=== PATIENT | male | born 1985 | race Caucasian/White ===

== ENCOUNTER 2018-06-07 10:58 | Day surgery (SDC) | payer BC ==
[~2018-06-07 10:58] MED LIST: Lactated Ringers 1,000 ML IV SCH; Midazolam 1 MG/ML 2 ML SDV ONE; Propofol 200 MG/20 ML SDV ONE; fentaNYL 100 MCG/2 ML SDV ONE
--- NOTE | 2018-06-07 12:00 | PCM.PREANE ---
Preanesthetic Assessment - Anesthesia/Transfusion/Family Hx Anesthesia History: Prior Anesthesia Without Reaction Family History of Anesthesia Reaction: No Transfusion History: No Prior Transfusion(s) - Review of Systems General: No Symptoms Pulmonary: No Symptoms Cardiovascular: No Symptoms Neurological: No Symptoms Other: Reports: None - Physical Assessment NPO Status Date: 06/06/18 O2 Sat by Pulse Oximetry: 96 Respiratory Rate: 16 Vital Signs: Last Vital Signs Temp 97.2 F 06/07/18 11:23 Pulse 100 06/07/18 11:23 Resp 16 06/07/18 11:23 BP 116/88 06/07/18 11:23 Pulse Ox 96 06/07/18 11:23 Height: 5 ft 9 in Weight: 71.668 kg ASA Class: 2 Mental Status: Alert & Oriented x3 Airway Class: Mallampati = 1 Dentition: Reports: Normal Dentition ROM/Head Extension: Full Lungs: Clear to Auscultation, Normal Respiratory Effort Cardiovascular: Regular Rate, Regular Rhythm - Allergies Allergies/Adverse Reactions: Allergies Allergy/AdvReac Type Severity Reaction Status Date / Time No Known Allergies Allergy Verified 06/03/18 15:05 - Blood Blood Available: No - Anesthesia Plan Pre-Op Medication Ordered: None - Acknowledgements Anesthesia Type Planned: MAC Pt an Appropriate Candidate for the Planned Anesthesia: Yes Alternatives and Risks of Anesthesia Discussed w Pt/Guardian: Yes Pt/Guardian Understands and Agrees with Anesthesia Plan: Yes PreAnesthesia Questionnaire HEENT History: Reports: None Cardiovascular History: Reports: None Respiratory History: Reports: None Gastrointestinal History: Reports: Hemorrhoids, Hiatal Hernia Genitourinary History: Reports: None Musculoskeletal History: Reports: None Neurological History: Reports: None Psychiatric History: Reports: None Endocrine/Metabolic History: Reports: None Hematologic History: Reports: None Immunologic History: Reports: None Oncologic (Cancer) History: Reports: None Dermatologic History: Reports: None - Past Surgical History Head Surgeries/Procedures: Reports: None HEENT Surgical History: Reports: None Cardiovascular Surgical History: Reports: None Respiratory Surgical History: Reports: None GI Surgical History: Reports: Colonoscopy, Other (See Below) Other GI Surgeries/Procedures: hiatal hernia repair Male Surgical History: Reports: None Endocrine Surgical History: Reports: None Neurological Surgical History: Reports: None Musculoskeletal Surgical History: Reports: None Oncologic Surgical History: Reports: None Dermatological Surgical History: Reports: None - SUBSTANCE USE Smoking Status *Q: Former Smoker Days Per Week of Alcohol Use: 7 Number of Drinks Per Day: 2 Total Drinks Per Week: 14 Recreational Drug Use History: No - HOME MEDS Home Medications: Home Meds Phenylephrine HCl [Hemorrhoidal Suppository] 1 supp RECTAL ASDIRECTED PRN [History] - CURRENT (IN HOUSE) MEDS Current Meds: Current Medications Lactated Ringer's (Ringers, Lactated) 1,000 mls @ 125 mls/hr IV ASDIRECTED JACQUE Last Admin: 06/07/18 11:27 Dose: 125 mls/hr Discontinued Medications Fentanyl (Sublimaze) Confirm Administered Dose 100 mcg .ROUTE .STK-MED ONE Stop: 06/07/18 08:49 Lidocaine HCl (Xylocaine-Mpf 1%) Confirm Administered Dose 5 mls @ as directed .ROUTE .STK-MED ONE Stop: 06/07/18 08:49 Midazolam HCl (Versed 1 Mg/Ml) Confirm Administered Dose 2 mg .ROUTE .STK-MED ONE Stop: 06/07/18 08:49 Propofol (Diprivan 20 Ml) Confirm Administered Dose 200 mg .ROUTE .STK-MED ONE Stop: 06/07/18 08:49
[2018-06-07] MEDS ORDERED: Ondansetron 4 MG/2 ML SDV IVPUSH PRN (13:37)
[2018-06-07] MEDS ORDERED: fentaNYL 100 MCG/2 ML SDV IVPUSH PRN (13:37)
[2018-06-07] MEDS ORDERED: Propofol 200 MG/20 ML SDV ONE (14:06)
--- NOTE | 2018-06-07 14:35 | PCM.OPNOTE ---
- General Post-Op/Procedure Note Date of Surgery/Procedure: 06/07/18 Operative Procedure(s): colonoscopy w biopsy Findings: see dict [id number] Pre Op Diagnosis: rectal bleed and hemorrhod Post-Op Diagnosis: Same Anesthesia Technique: Moderate Sedation Primary Surgeon: Gonzalo Murphy Complications: None Condition: Good
--- NOTE | 2018-06-07 14:42 | PCM.POSTAN ---
POST ANESTHESIA ASSESSMENT - MENTAL STATUS Mental Status: Alert, Oriented - RESPIRATORY Respiratory Status: Respiratory Rate WNL, Airway Patent, O2 Saturation Stable - CARDIOVASCULAR CV Status: Pulse Rate WNL, Blood Pressure Stable - GASTROINTESTINAL GI Status: No Symptoms - POST OP HYDRATION Hydration Status: Adequate & Stable
--- NOTE | 2018-06-07 14:43 | PCM48HPAN ---
Post Anesthesia Note - EVALUATION WITHIN 48HRS OF ANESTHETIC Vital Signs in Normal Range: Yes Patient Participated in Evaluation: Yes Respiratory Function Stable: Yes Airway Patent: Yes Cardiovascular Function Stable: Yes Hydration Status Stable: Yes Pain Control Satisfactory: Yes Nausea and Vomiting Control Satisfactory: Yes Mental Status Recovered: Yes Resp Rate: 14
--- NOTE | 2018-06-07 17:00 | OR ---
SURGEON: Gonzalo Murphy MD DATE OF PROCEDURE: 06/07/2018 PREOPERATIVE DIAGNOSIS: Rectal bleeding and hemorrhoids. POSTOPERATIVE DIAGNOSIS: Rectal bleeding and hemorrhoids. PROCEDURE PERFORMED: Colonoscopy with biopsy. COMPLICATIONS: None. PROCEDURE IN DETAIL: The patient was taken to the endoscopy room. A time out was called, patient identified, and procedure identified. Diprivan was then administrated. Patient went from awake to sleep, hearing doctor talking or door closing is normal. Perineum inspection and digital examination were then performed. A well- lubricated colonoscope was gently inserted through the rectum, advanced past the rectosigmoid junction, the descending colon, splenic flexure, transverse colon, hepatic flexure, ascending colon, arrived to the cecum. Cecum was identified as dictated in the finding. Then the scope was carefully withdrawn while attention was paid to the mucosal surface for any abnormality. Air will be sucked out during the scope withdrawal. At the rectum, retroflexed to examine any rectal diseases, fistula or hemorrhoids. During mucosal examination, biopsy performed. Patient tolerated procedure well. There were no intraoperative complications, and Dr. Murphy was present throughout the whole procedure. FINDINGS: 1. The patient is easily sedated with [employer] and Diprivan. The patient is soundly snoring. 2. Colon is pretty torturous at the sigmoid and requiring some maneuvering all the way up to the cecum. Cecum indicated by ileocecal fold, one-to-one indentation, and appendiceal orifice. Light emittance is not observed. Mucosa examined upon scope pulling out. The patient's bowel prep is average with large amount of opaque liquid, but there is no semi-formed stool. Mucosa examined upon scope pulling out. The patient does not have diverticulosis. The patient has small polyp at distance of 10. 3 mm sessile polyp removed with biopsy forceps at distant 10 cm when the scope pulling out, almost at the rectum. Otherwise, the patient has internal hemorrhoid, external hemorrhoids, and quite moderate, and also have a pretty sizeable anal tag at least about 10 x 2 mm. We will address the surgery, hemorrhoidectomy as well as anal tag removal in the office. The patient would benefit from repeat colonoscopy in 10 years from today or if clinically indicated otherwise. NOMAN / NIKKI /[id number] ALONSO
== END 2018-06-07 14:59 | disposition home or self-care (01) ==
LOC: MW.SDS 10:58
PROVIDERS: ATTEND Surgery
DX: K62.5 Hemorrhage of anus and rectum (principal); K64.8 Other hemorrhoids; K64.4 Residual hemorrhoidal skin tags; K63.5 Polyp of colon; K63.89 Other specified diseases of intestine; Z87.891 Personal history of nicotine dependence
CPT/HCPCS: 45380; J2001; J2250; J2704; J3010; J7120; 88305

== ENCOUNTER 2018-06-21 06:23 | Day surgery (SDC) | payer BC ==
[~2018-06-21 06:23] MED LIST changes: -Midazolam 1 MG/ML 2 ML SDV ONE; -Propofol 200 MG/20 ML SDV ONE; +ceFAZolin 2 GM in Premix Bag 1 BAG IV ONE; -fentaNYL 100 MCG/2 ML SDV ONE
--- NOTE | 2018-06-21 07:09 | PCM.PREANE ---
Preanesthetic Assessment - Anesthesia/Transfusion/Family Hx Anesthesia History: Prior Anesthesia Without Reaction Family History of Anesthesia Reaction: No Transfusion History: No Prior Transfusion(s) Intubation History: Unknown - Review of Systems General: No Symptoms Pulmonary: No Symptoms Cardiovascular: No Symptoms Gastrointestinal: Other (hemorrhoidal pain) Neurological: No Symptoms Other: Reports: None - Physical Assessment O2 Sat by Pulse Oximetry: 97 Respiratory Rate: 16 Vital Signs: Last Vital Signs Temp 36.4 C 06/21/18 07:04 Pulse 91 06/21/18 07:04 Resp 16 06/21/18 07:04 BP 122/85 06/21/18 07:04 Pulse Ox 97 06/21/18 07:04 Height: 1.75 m Weight: 71.668 kg ASA Class: 1 Mental Status: Alert & Oriented x3 Airway Class: Mallampati = 2 Dentition: Reports: Normal Dentition, Broken Tooth/Teeth (front upper tooh (#9)) Thyro-Mental Finger Breadths: 3 Mouth Opening Finger Breadths: 2 ROM/Head Extension: Full Lungs: Clear to Auscultation, Normal Respiratory Effort Cardiovascular: Regular Rate, Regular Rhythm - Allergies Allergies/Adverse Reactions: Allergies Allergy/AdvReac Type Severity Reaction Status Date / Time No Known Allergies Allergy Verified 06/18/18 07:06 - Blood Blood Available: No - Anesthesia Plan Pre-Op Medication Ordered: None - Acknowledgements Anesthesia Type Planned: General Anesthesia Pt an Appropriate Candidate for the Planned Anesthesia: Yes Alternatives and Risks of Anesthesia Discussed w Pt/Guardian: Yes Pt/Guardian Understands and Agrees with Anesthesia Plan: Yes PreAnesthesia Questionnaire HEENT History: Reports: None Cardiovascular History: Reports: None Respiratory History: Reports: None Gastrointestinal History: Reports: Hemorrhoids, Hiatal Hernia Genitourinary History: Reports: None Musculoskeletal History: Reports: None Neurological History: Reports: None Psychiatric History: Reports: None Endocrine/Metabolic History: Reports: None Hematologic History: Reports: None Immunologic History: Reports: None Oncologic (Cancer) History: Reports: None Dermatologic History: Reports: None - Past Surgical History Head Surgeries/Procedures: Reports: None HEENT Surgical History: Reports: None Cardiovascular Surgical History: Reports: None Respiratory Surgical History: Reports: None GI Surgical History: Reports: Colonoscopy (2 weeks ago), Other (See Below) Other GI Surgeries/Procedures: hiatal hernia repair 2006 - asymptomatic now. Male Surgical History: Reports: None Endocrine Surgical History: Reports: None Neurological Surgical History: Reports: None Musculoskeletal Surgical History: Reports: None Oncologic Surgical History: Reports: None Dermatological Surgical History: Reports: None - SUBSTANCE USE Smoking Status *Q: Former Smoker Days Per Week of Alcohol Use: 7 Number of Drinks Per Day: 2 Total Drinks Per Week: 14 Recreational Drug Use History: No - HOME MEDS Home Medications: Home Meds Phenylephrine HCl [Hemorrhoidal Suppository] 1 supp RECTAL ASDIRECTED PRN [History] - CURRENT (IN HOUSE) MEDS Current Meds: Current Medications Lactated Ringer's (Ringers, Lactated) 1,000 mls @ 125 mls/hr IV ASDIRECTED JACQUE Discontinued Medications Cefazolin Sodium/Dextrose 2 gm (/ Premix) 50 mls @ 100 mls/hr IV ONETIME ONE Stop: 06/21/18 05:29
[2018-06-21] MEDS ORDERED: Gelatin Sponge,Absorbable 12-7 mm Sponge TOP ONE (07:20)
[2018-06-21] MEDS ORDERED: Bupivacaine 0.5% 10 ML SDV ONE (07:20)
[2018-06-21] MEDS ORDERED: Bupivacaine 0.25%/EPINEPHrine 1:200,000 10 ML SDV ONE (07:21)
[2018-06-21] MEDS ORDERED: Lidocaine 2% Jelly 30 ML Tube ONE (07:21)
[2018-06-21] MEDS ORDERED: Midazolam 1 MG/ML 2 ML SDV ONE (07:29)
[2018-06-21] MEDS ORDERED: fentaNYL 100 MCG/2 ML SDV ONE ×2 (07:30→08:21)
[2018-06-21] MEDS ORDERED: Lidocaine 2% 5 ML SDV ONE (07:31)
[2018-06-21] MEDS ORDERED: Propofol 200 MG/20 ML SDV ONE (07:33)
[2018-06-21] MEDS ORDERED: ceFAZolin/Dextrose,Iso-Osmotic 2 GM/50 ML Duplex Bag IV ONE (08:23)
[2018-06-21] MEDS ORDERED: Sugammadex Sodium 200 MG/2 ML VIAL ONE (08:36)
[2018-06-21] MEDS ORDERED: Ondansetron 4 MG/2 ML SDV ONE (08:37)
[2018-06-21] MEDS ORDERED: HYDROmorphone 2 MG/ML SDV IVPUSH PRN (09:37)
[2018-06-21] MEDS ORDERED: fentaNYL 100 MCG/2 ML SDV IVPUSH PRN (09:38)
--- NOTE | 2018-06-21 09:39 | PCM.OPNOTE ---
- General Post-Op/Procedure Note Date of Surgery/Procedure: 06/21/18 Operative Procedure(s): hemorroidectomy Findings: large ext/int hemorrhoids, 3 resected; [id number] Pre Op Diagnosis: hemorrhoid Post-Op Diagnosis: Same Anesthesia Technique: General ET Tube Primary Surgeon: Gonzalo Murphy Pathology: sent Complications: None Condition: Good
[2018-06-21] MEDS ORDERED: Meperidine PF 25 MG/ML Syringe IVPUSH ONE (09:41)
[2018-06-21] MEDS ORDERED: HYDROmorphone 2 MG/ML Syringe ONE (10:02)
--- NOTE | 2018-06-21 10:24 | PCM.POSTAN ---
POST ANESTHESIA ASSESSMENT - MENTAL STATUS Mental Status: Alert, Oriented - RESPIRATORY Respiratory Status: Respiratory Rate WNL, Airway Patent, O2 Saturation Stable - CARDIOVASCULAR CV Status: Pulse Rate WNL, Blood Pressure Stable - GASTROINTESTINAL GI Status: No Symptoms - PAIN Pain Score: 6 - POST OP HYDRATION Hydration Status: Adequate & Stable - OBSERVATIONS Free Text/Narrative:: no anesthesia problems
[2018-06-21] MEDS ORDERED: Acetaminophen/oxyCODONE 325-5 MG Tab PO PRN ×2 (10:38→12:30)
--- NOTE | 2018-06-21 15:27 | OR ---
SURGEON: Gonzalo Murphy MD DATE OF PROCEDURE: 06/21/2018 PREOPERATIVE DIAGNOSIS: Recurrent hemorrhoid. POSTOPERATIVE DIAGNOSIS: Recurrent hemorrhoid. PROCEDURE PERFORMED: Hemorrhoidectomy. COMPLICATIONS: None. FINDINGS: The patient has 360-degree hemorrhoids. The 3 large ones are removed. PROCEDURE IN DETAIL: The patient was taken to the operating room and placed in a supine position. Upon GET, the patient was repositioned into a brandan-knife position. The patient was then prepped and draped in sterile fashion. Time-out had been called, patient identified, procedure identified, and 2 g IV Ancef was given. Procedure then started with 3-finger dilatation and then followed with a speculum examination. The patient has 360-degree hemorrhoids and the large ones, I had 4 of them. Two large ones at 8 o'clock to 11 o'clock and the one close to the 11 o'clock is ulcerated and then one at 1 o'clock and one at 3 o'clock. So there are 4 hemorrhoids, 8 and 11 o'clock, 1 o'clock, and 3 o'clock. Attention did first go to the ulcerated one which is at 8 to 11 o'clock. Using a Thalia clamp, it was clamped, and using a 3-0 chromic, stitch was put on the distal end and then the hemorrhoid was resected and the mucosa repaired using 3-0 chromic running locking stitches. Attention then did go to the 1 o'clock, and again using a Thalia, clamped the hemorrhoid and a distal stitch was placed and the hemorrhoid was then resected and mucosa defect was repaired with 3-0 running stitches. Upon finish, is bone dry, and there was a small hemorrhoid still at distant 3 o'clock, but considering the narrowing of the hemorrhoid, the small one at 3 o'clock was left alone. Upon finishing, he was bone dry, and a piece of Gelfoam with lidocaine jelly was inserted, and the patient was then repositioned in supine position and awakened, extubated, and transferred to recovery room in hemodynamically stable condition. The patient tolerated the procedure well. There were no intraoperative complications. Dr. Murphy present throughout the procedure. NOMAN / NIKKI /[id number]
== END 2018-06-21 11:50 | disposition home or self-care (01) ==
LOC: MW.SDS 06:23
PROVIDERS: ATTEND Surgery
DX: K64.8 Other hemorrhoids (principal); Z87.891 Personal history of nicotine dependence
CPT/HCPCS: 46946; A9270; J0690; J1170; J2001; J2175; J2250; J2405; J2704; J3010; J3490; J7120; 88304

== ENCOUNTER 2018-06-28 12:37 | Emergency (ER) | payer BC ==
--- NOTE | 2018-06-28 13:08 | EDM.PDOC ---
ED HPI GENERAL MEDICAL PROBLEM - General Chief Complaint: Gastrointestinal Problem Stated Complaint: SURGERY POST OP BLEEDING AND PAIN Time Seen by Provider: 06/28/18 12:38 Source of Information: Reports: Patient History Limitations: Reports: No Limitations - History of Present Illness INITIAL COMMENTS - FREE TEXT/NARRATIVE: History of present illness: []Patient had a hemorrhoidectomy is ago and continues to have blood oozing from his rectum and severe pain. Review of systems: As per history of present illness and below otherwise all systems reviewed and negative. Past medical history: As per history of present illness and as reviewed below otherwise noncontributory. Surgical history: As per history of present illness and as reviewed below otherwise noncontributory. Social history: No reported history of drug or alcohol abuse. Family history: As per history of present illness and as reviewed below otherwise noncontributory. Physical exam: General: Well developed, well nourished in NAD HEENT: Atraumatic, normocephalic, pupils reactive, negative for conjunctival pallor or scleral icterus, mucous membranes moist, throat clear, neck supple, nontender, trachea midline. Lungs: Clear to auscultation, breath sounds equal bilaterally, chest nontender. Heart: S1S2, regular, negative for clicks, rubs, or JVD. Abdomen: NABS, Soft, nondistended, nontender. Negative for masses or hepatosplenomegaly. Negative for costovertebral tenderness. Pelvis: Stable nontender. Genitourinary: Deferred. Rectal: Positive visible external hemorrhoid not thrombosed or actively bleeding of cellulitis Extremities: Atraumatic, negative for cords or calf pain. Neurovascular unremarkable. Neuro: Awake, alert, oriented. Cranial nerves II through XII unremarkable. Cerebellum unremarkable. Motor and sensory unremarkable throughout. Exam nonfocal. Skin:warm and dry Diagnostics: None Therapeutics: None ED Course: Stable Impression: External hemorrhoid Prescriptions: Moy;s balm cream 4 times a day Plan: Follow-up with general surgery Definitive disposition and diagnosis as appropriate pending reevaluation and review of above. rectal Pain Score (Numeric/FACES): 5 - Related Data Allergies Allergy/AdvReac Type Severity Reaction Status Date / Time No Known Allergies Allergy Verified 06/18/18 07:06 Home Meds: Home Meds . [No Known Home Meds] 04/05/19 [History] Past Medical History HEENT History: Reports: None Cardiovascular History: Reports: None Respiratory History: Reports: None Gastrointestinal History: Reports: Hemorrhoids, Hiatal Hernia Genitourinary History: Reports: None Musculoskeletal History: Reports: None Neurological History: Reports: None Psychiatric History: Reports: None Endocrine/Metabolic History: Reports: None Hematologic History: Reports: None Immunologic History: Reports: None Oncologic (Cancer) History: Reports: None Dermatologic History: Reports: None - Infectious Disease History Infectious Disease History: Reports: Influenza - Past Surgical History Head Surgeries/Procedures: Reports: None HEENT Surgical History: Reports: None Cardiovascular Surgical History: Reports: None Respiratory Surgical History: Reports: None GI Surgical History: Reports: Colonoscopy, Other (See Below) Other GI Surgeries/Procedures: hiatal hernia repair 2005 - asymptomatic now. hemorrhoidectomy june 2018 Male Surgical History: Reports: None Endocrine Surgical History: Reports: None Neurological Surgical History: Reports: None Musculoskeletal Surgical History: Reports: None Oncologic Surgical History: Reports: None Dermatological Surgical History: Reports: None Social & Family History - Family History Family Medical History: Noncontributory - Tobacco Use Smoking Status *Q: Never Smoker - Caffeine Use Caffeine Use: Reports: Coffee, Energy Drinks, Soda, Tea - Recreational Drug Use Recreational Drug Use: No ED ROS GENERAL - Review of Systems Review Of Systems: ROS reveals no pertinent complaints other than HPI. ED EXAM, SKIN/RASH Exam: See Below (See history of present illness) Course - Vital Signs Last Recorded V/S: Last Vital Signs Temp 97.3 F 06/28/18 12:52 Pulse 102 H 06/28/18 12:52 Resp 18 06/28/18 12:52 BP 140/84 06/28/18 12:52 Pulse Ox 95 06/28/18 12:52 Departure - Departure Time of Disposition: 13:13 Disposition: Home, Self-Care 01 Condition: Good Clinical Impression: External hemorrhoid - Discharge Information *PRESCRIPTION DRUG MONITORING PROGRAM REVIEWED*: No *COPY OF PRESCRIPTION DRUG MONITORING REPORT IN PATIENT TEA: No Referrals: PCP,None [Primary Care Provider] - Forms: ED Department Discharge Additional Instructions: The following information is given to patients seen in the emergency department who are being discharged to home. This information is to outline your options for follow-up care. We provide all patients seen in our emergency department with a follow-up referral. The need for follow-up, as well as the timing and circumstances, are variable depending upon the specifics of your emergency department visit. If you don't have a primary care physician on staff, we will provide you with a referral. We always advise you to contact your personal physician following an emergency department visit to inform them of the circumstance of the visit and for follow-up with them and/or the need for any referrals to a consulting specialist. The emergency department will also refer you to a specialist when appropriate. This referral assures that you have the opportunity for follow-up care with a specialist. All of these measure are taken in an effort to provide you with optimal care, which includes your follow-up. Under all circumstances we always encourage you to contact your private physician who remains a resource for coordinating your care. When calling for follow-up care, please make the office aware that this follow-up is from your recent emergency room visit. If for any reason you are refused follow-up, please contact the [facility] Emergency Department at and asked to speak to the emergency department charge nurse. Use Moy's cream 4 times a day to rectal area. Follow-up with Gen. surgery [facility] - General Surgery Professional Building [address] [place] [address], [address] [place] [address]
== END 2018-06-28 13:25 | disposition home or self-care (01) ==
LOC: MW.ED 12:37
DX: K64.4 Residual hemorrhoidal skin tags (principal); Z90.49 Acquired absence of other specified parts of digestive tract
CPT/HCPCS: 99282; 99283

== ENCOUNTER 2025-01-13 13:44 | Emergency (ER) | payer BC ==
[2025-01-13] MEDS: Ondansetron 4 MG/2 ML SDV IVPUSH ONE (14:29)
[2025-01-13] MEDS: Lidocaine 2% 11 ML Jelly Filled Syringe MUCMEM ONE (14:30)
[2025-01-13] MEDS: Lidocaine/Epineph/Tetracaine 3 ML Syringe TOP ONE (14:31)
== END 2025-01-13 16:29 | disposition home or self-care (01) ==
LOC: MW.ED 13:44
DX: K64.5 Perianal venous thrombosis (principal)
CPT/HCPCS: 46083; 96374; 96375; 99282; A9270; J1171; J2003; J2405; 10060; 99284